=== PATIENT | male | born 2000 | race Caucasian/White ===

== ENCOUNTER 2018-07-16 13:59 | Emergency (ER) | payer OTHER ==
[~2018-07-16] VITALS: Ht 180.3 cm; Wt 68.0 kg
[~2018-07-16 13:59] MED LIST: ALBU90OI INH; AMOX50SU PO; Bactrim Ds Tab1 EACH PO; CODACEE120 PO; DIPH12.5EL PO; PRED15SY PO; RANI150EL PO
[2018-07-16] MEDS ORDERED: HYDHCL25 PO (14:23)
[2018-07-16] MEDS ORDERED: TRIA15CR3 TOP (14:23)
== END 2018-07-16 14:34 | disposition home or self-care (01) ==
LOC: ER 13:59
DX: L25.5 Unspecified contact dermatitis due to plants, except food (principal)
CPT/HCPCS: 96372; 99283-25; J1200; J3301

== ENCOUNTER 2018-11-20 21:11 | Emergency (ER) | payer OTHER ==
[~2018-11-20] VITALS: Ht 180.3 cm; Wt 68.0 kg
[~2018-11-20 21:11] MED LIST changes: +HYDHCL25 PO; +TRIA15CR3 TOP
[2018-11-20] MEDS ORDERED: TRIA15CR3 TOP (21:45)
== END 2018-11-20 21:50 | disposition home or self-care (01) ==
LOC: ER 21:11
DX: L23.7 Allergic contact dermatitis due to plants, except food (principal)
CPT/HCPCS: 96372; 99283-25; J3301